=== PATIENT | female | born 1955 | race Asian ===

== ENCOUNTER 2018-10-18 12:40 | Outpatient (CLI) | payer BC | END 2018-10-18 19:32 | disposition home or self-care (01) | LOC: RAD 12:40 | DX: R05 Cough (principal); R06.02 Shortness of breath ==

== ENCOUNTER 2019-05-10 12:59 | Outpatient (CLI) | payer BC | END 2019-05-10 19:36 | disposition home or self-care (01) | LOC: MAMMO 12:59 | DX: Z12.31 Encounter for screening mammogram for malignant neoplasm of breast (principal) ==

== ENCOUNTER 2019-06-08 14:41 | Outpatient (CLI) | payer BC | END 2019-06-08 21:48 | disposition home or self-care (01) | LOC: US 14:41 | DX: R92.8 Other abnormal and inconclusive findings on diagnostic imaging of breast (principal) ==

== ENCOUNTER 2020-02-24 15:35 | Emergency (ER) | payer BC ==
[~2020-02-24] VITALS: Ht 165.1 cm; Wt 121.6 kg
[2020-02-24 16:45] LABS: PLATELET COUNT 270 K/uL (152-353)
[2020-02-24 16:51] LABS: POTASSIUM 3.6 mmol/L (3.6-5.2); SODIUM 136 mmol/L (136-145)
[2020-02-24 18:35] VITALS: BP 136/81; TEMP 99.4
== END 2020-02-24 18:38 | disposition home or self-care (01) ==
LOC: ED 15:35
PROVIDERS: Emergency Medicine
DX: J20.9 Acute bronchitis, unspecified (principal); J12.89 Other viral pneumonia; Z20.828 Contact with and (suspected) exposure to other viral communicable diseases
CPT/HCPCS: 36415; 80053; 82550; 83605; 84484; 85027; 85379; 87040; 87502; 87651; 96365; 96374; 96375; 99284; J0456; J1100

== ENCOUNTER 2023-05-20 10:23 | Outpatient (CLI) | payer OTHER | END 2023-05-20 19:02 | disposition home or self-care (01) | LOC: MAMMO 10:23 | PROVIDERS: ATTEND Nurse Practitioner Family | DX: Z12.31 Encounter for screening mammogram for malignant neoplasm of breast (principal) ==